=== PATIENT | female | born 1950 | race Hispanic/Latino ===

== ENCOUNTER 2016-06-25 07:54 | Outpatient (CLI) | payer MEDICARE ==
--- NOTE | 2016-06-25 09:02 | Mammography Report ---
BILATERAL MAMMOGRAM: FINDINGS: The breast tissue is heterogeneously dense, which could obscure detection of small masses (approximately 50%-75% glandular). No mass, distortion, suspicious calcification, or skin change is seen. There are no changes compared to prior examination in October 2014. CAD was utilized. IMPRESSION: Negative mammogram. There is no mammographic evidence of malignancy. RECOMMENDATION: Follow-up per ACS guidelines. BI-RADS CATEGORY: 1 = Negative ACR BI-RADS MAMMOGRAPHIC CODES: 0 = Needs additional imaging evaluation; 1 = Negative; 2 = Benign; 3 = Probably benign; 4 = Suspicious; 5 = Malignant; 6 = Known biopsy-proven malignancy COMMENT: 1. Dense breast tissue, i.e., adenosis, fibrocystic changes, etc., may obscure an underlying neoplasm. 2. Approximately 10% of cancers are not detected with mammography. 3. A negative mammography report should not delay biopsy if a clinically suspicious mass is present. COMMENT: Patient follow-up letters are generated in [employer].
== END 2016-06-25 07:55 | disposition home or self-care (01) ==
LOC: SPVWC 07:54
PROVIDERS: ATTEND Internal Medicine
DX: Z12.31 Encounter for screening mammogram for malignant neoplasm of breast (principal)
CPT/HCPCS: 77067; G0202

== ENCOUNTER 2017-07-01 10:01 | Outpatient (CLI) | payer MEDICARE ==
--- NOTE | 2017-07-01 15:52 | Mammography Report ---
BILATERAL DIGITAL SCREENING MAMMOGRAM with CAD: 07/01/17 10:01:00 CLINICAL: Routine screening. COMPARISON:06/25/16 FINDINGS: Suboptimal positioning of the right residue to limited mobility in the right arm. The breasts are heterogeneously dense, which may obscure small masses.A right asymmetry on the CC view requires additional imaging. The left breast is negative. IMPRESSION: Right asymmetry requiring further workup. BI-RADS CATEGORY: 0 -- Additional Imaging Evaluation Required RECOMMENDATION: Recall for right spot compression CC view and right breast ultrasound if needed. ACR BI-RADS MAMMOGRAPHIC CODES: 0 = Needs additional imaging evaluation; 1 = Negative; 2 = Benign; 3 = Probably benign; 4 = Suspicious; 5 = Malignant; 6 = Known biopsy-proven malignancy COMMENT: 1. Dense breast tissue, i.e., adenosis, fibrocystic changes, etc., may obscure an underlying neoplasm. 2. Approximately 10% of cancers are not detected with mammography. 3. A negative mammography report should not delay biopsy if a clinically suspicious mass is present. COMMENT: Patient follow-up letters are generated via our [employer] application.
== END 2017-07-01 10:02 | disposition home or self-care (01) ==
LOC: SPVWC 10:01
PROVIDERS: ATTEND Internal Medicine
DX: Z12.31 Encounter for screening mammogram for malignant neoplasm of breast (principal)
CPT/HCPCS: 77067

== ENCOUNTER 2017-07-26 09:59 | Outpatient (CLI) | payer MEDICARE ==
--- NOTE | 2017-07-26 11:31 | Mammography Report ---
RIGHT DIGITAL DIAGNOSTIC MAMMOGRAM and RIGHT BREAST ULTRASOUND: 07/26/17 09:59:00 CLINICAL: Recalled for asymmetry. COMPARISON:07/01/17 screening FINDINGS: MLO and CC spot compression views were performed and demonstrate an oval circumscribed density slightly lateral to the nipple on the CC view in the anterior breast. Ultrasound of the right breast was performed and demonstrated an oval relatively smooth cyst with low level internal echoes versus solid nodule at 8 o'clock 4 cm from the nipple. It correlates with the mammographic density and measures 6 x 5 x 4 mm. It has a slightly reniform shape but there is no fatty hilum to suggest that it is a lymph node. IMPRESSION: A 6 mm complex cyst versus solid nodule at 8 o'clock right breast. BI-RADS CATEGORY: 4A -- Mildly Suspicious RECOMMENDATION: Ultrasound guided needle aspiration and ultrasound guided needle core biopsy if fluid cannot be aspirated from the lesion. I discussed the findings and the recommendation for needle aspiration/ core biopsy with the patient at the time of the examination. ACR BI-RADS MAMMOGRAPHIC CODES: 0 = Needs additional imaging evaluation; 1 = Negative; 2 = Benign; 3 = Probably benign; 4 = Suspicious; 5 = Malignant; 6 = Known biopsy-proven malignancy COMMENT: 1. Dense breast tissue, i.e., adenosis, fibrocystic changes, etc., may obscure an underlying neoplasm. 2. Approximately 10% of cancers are not detected with mammography. 3. A negative mammography report should not delay biopsy if a clinically suspicious mass is present. COMMENT: Patient follow-up letters are generated via our [employer] application.
--- NOTE | 2017-07-26 15:13 | Ultrasound Report ---
RIGHT DIGITAL DIAGNOSTIC MAMMOGRAM and RIGHT BREAST ULTRASOUND: 07/26/17 09:59:00 CLINICAL: Recalled for asymmetry. COMPARISON:07/01/17 screening FINDINGS: MLO and CC spot compression views were performed and demonstrate an oval circumscribed density slightly lateral to the nipple on the CC view in the anterior breast. Ultrasound of the right breast was performed and demonstrated an oval relatively smooth cyst with low level internal echoes versus solid nodule at 8 o'clock 4 cm from the nipple. It correlates with the mammographic density and measures 6 x 5 x 4 mm. It has a slightly reniform shape but there is no fatty hilum to suggest that it is a lymph node. IMPRESSION: A 6 mm complex cyst versus solid nodule at 8 o'clock right breast. BI-RADS CATEGORY: 4A -- Mildly Suspicious RECOMMENDATION: Ultrasound guided needle aspiration and ultrasound guided needle core biopsy if fluid cannot be aspirated from the lesion.
== END 2017-07-26 10:00 | disposition home or self-care (01) ==
LOC: SPVWC 09:59
PROVIDERS: ATTEND Nurse Practitioner
DX: R92.8 Other abnormal and inconclusive findings on diagnostic imaging of breast (principal)

== ENCOUNTER 2017-08-02 10:12 | Outpatient (CLI) | payer MEDICARE ==
--- NOTE | 2017-08-02 16:23 | Ultrasound Report ---
ULTRASOUND GUIDED NEEDLE CORE BIOPSY RIGHT BREAST WITH CLIP PLACEMENT and ULTRASOUND GUIDED NEEDLE ASPIRATION RIGHT BREAST WITH CLIP PLACEMENT: 08/02/17 CLINICAL: Complex cyst versus mass at 8 o'clock 4 cm from the nipple. COMPARISON :07/26/17 FINDINGS: The procedure was explained to the patient and informed consent was obtained. Ultrasound of the right breast with the patient supine demonstrated a lesion at 9:30 o'clock approximately 6 cm from the nipple which was thought to represent the same lesion identified previously when the patient was scanned upright in a wheelchair. I marked the breast with a felt tip marker and a time out was called. The skin was prepped with Betadine and anesthetized with 1% lidocaine. Needle core biopsy was performed through a tiny dermatotomy using ultrasound guidance, 2% lidocaine with epinephrine for deep anesthesia and a 14-gauge Achieve biopsy device. 3 cores were obtained and placed in formalin. A clip was deployed within the lesion The patient tolerated the procedure well and there were no apparent complications. Hemostasis was achieved with minimal pressure and a sterile dressing was applied. A two view mammogram showed the clip to be discordant with the previously identified mammographic lesion. That lesion is identified on the post clip mammogram. The patient was then taken back to ultrasound and using local anesthesia with 1% lidocaine and a 20-gauge needle, ultrasound-guided aspiration of a lesion at 7 o'clock 4 cm from the nipple was performed. The lesion showed complete collapse and a clip was deployed at the site of the lesion. Fluid was present Cytolyte be sent to the lab. A repeat mammogram showed resolution of the original mammographic lesion with the second clip at the site of the lesion. IMPRESSION: Uncomplicated ultrasound guided needle core biopsy with clip placement and uncomplicated needle aspiration with clip placement for two separate area of the right breast.
--- NOTE | 2017-08-02 16:31 | Mammography Report ---
RIGHT DIGITAL DIAGNOSTIC MAMMOGRAM: 08/02/17 10:12:00 CLINICAL: For clip placement immediately status post ultrasound guided needle biopsy and ultrasound guided needle aspiration at 2 separate sites. COMPARISON:07/26/17 FINDINGS: Initial mammographic views were performed after biopsy of lesion 1. A clip is identified in the upper outer breast and it is apparent on the initial images that the clip position is discordant with the original mammographic lesion.A second pair of images was obtained after needle aspiration of a second lesion and those images demonstrate concordant clip placement and resolution of a mammographic density which correlates with the original mammographic lesion. IMPRESSION: Initial clip placement is discordant with the original lesion. However concordant placement of a second clip with resolution of the original mammographic lesion of the mammographic lesion that was identified on 07/26/17. BI-RADS CATEGORY: 4A--Mildly Suspicious Pathology and cytology pending.
== END 2017-08-02 10:13 | disposition home or self-care (01) ==
LOC: SPVWC 10:12
PROVIDERS: ATTEND Nurse Practitioner
DX: N60.01 Solitary cyst of right breast (principal); N63.10 Unspecified lump in the right breast, unspecified quadrant
CPT/HCPCS: 88112; 88305